=== PATIENT | female | born 1945 | race Caucasian/White ===

== ENCOUNTER 2016-11-02 12:08 | Emergency (ER) | payer OTHER, MEDICARE ==
--- NOTE | 2016-11-02 12:28 | ED GENERAL ADULT ---
History of Present Illness General Chief Complaint: Fever Stated Complaint: FEVER X 10 DAYS Source: patient, old records Exam Limitations: no limitations Vital Signs & Intake/Output Vital Signs & Intake/Output Vital Signs Date Time Temp Pulse Resp B/P Pulse O2 O2 Flow FiO2 Ox Delivery Rate 11/02 1458 98.7 86 18 149/70 98 11/02 1230 98 Room Air 11/02 1219 98.5 105 16 137/73 95 Room Air Allergies Coded Allergies: No Known Allergies (11/02/16) Reconcile Medications Albuterol Sulfate (Proair Hfa) 90 MCG HFA.AER.AD 2 PUF INH Q4-6 PRN PRN BREATHING PROBLEMS (Reported) Azithromycin 250 MG TABLET 1 DP PO AD bronchitis 2 the first day followed by 1 for days 2-5 Budesonide/Formoterol Fumarate (Symbicort 160-4.5 Mcg Inhaler) 160 MCG-4.5 MCG/ ACTUATION HFA.AER.AD 2 PUF INH BID BREATHING PROBLEMS (Reported) Losartan Potassium 25 MG TABLET 1 TAB PO DAILY HEART (Reported) Pravastatin Sodium 20 MG TABLET 1 TAB PO QPM CHOLESTEROL (Reported) Triage Note: TRIAGE: C/O FEVER X11 DAYS, HIGHEST WAS 103.9 AT HOME. LAST TOOK TYLENOL 6AM AND ARRIVES AFEBRILE 98.5. HX ASTHMA AND DIFFICULTY TAKING DEEP BREATHS. O2 SAT 96% ON ROOM AIR, NO ACUTE DISTRESS OBSERVED AND NO ACTIVE COUGHING IN TRIAGE. STATES SHE IS REDOING BATHROOM AND COUGH MAY BE RESULT FROM ASTHMA EXACERBATION. REPORTS POOR APPETITE FOR ABOUT 2 WEEKS WITH APPROX 10LBS WEIGHT LOSS. REPORTS PINCHED NERVE IN BACK, HAD INJECTION L3 PINCHED NERVE MID FEB AND QUESTIONING IF THIS IS RELATED TO ONSET OF FEVER. Triage Nurses Notes Reviewed? yes Onset: Gradual Duration: day(s): (11), intermittent Timing: recent history Injury Environment: home Severity: mild, moderate Severity Numbers: 6 No Modifying Factors: none Associated Symptoms: cough HPI: 71-year-old female presents emergency room complaining of intermittent fevers for the past 11 days as high as 103.9 at home. The patient took a dose of Tylenol at 6:00 this morning however states her last fever was last night. She states over the past few days she's had a nonproductive cough that seemed to begin after she resealed her bathroom tub. No sputum production or hemoptysis. She denies any chest pain or abdominal pain no nausea vomiting or diarrhea no urinary symptoms. Patient reports a poor appetite, no rashes to her skin no recent tick or insect bite no recent travel or sick contacts. The patient states she had 2 epidurals in August and October 09 being a last one, however she denies any back pain redness or warmth to her back. There are no modifying factors or associated symptoms (NABEEL HARGROVE) Past History Travel History Traveled to [place] past 21 day No Medical History Any Pertinent Medical History? see below for history Neurological: NONE EENT: NONE Cardiovascular: hypertension, hyperlipidemia Respiratory: asthma, bronchitis, PNA Gastrointestinal: irritable bowel syndrome, cdiff colitis Hepatic: NONE Renal: NONE Musculoskeletal: LUMBAR PAIN R/T PINCHED NERVE Psychiatric: NONE Endocrine: NONE Blood Disorders: NONE Cancer(s): NONE SECURITY SHIFT MANAGER/Reproductive: NONE Pneumonia Vaccine: 05/26/06 Influenza Vaccine: 04/26/10 Surgical History Surgical History: none Psychosocial History Who do you live with Spouse What is your primary language Greenlandic Tobacco Use: Quit >30 days ago ETOH Use: occasional use Illicit Drug Use: denies illicit drug use Family History Hx Contributory? No (NABEEL HARGROVE) Review of Systems Review of Systems Constitutional: Reports: see HPI. All Other Systems: Reviewed and Negative Comments Review of systems: See HPI, All other systems negative. Constitutional, no chills fever, no malaise no weight loss HEENT: No visual changes no sore throat no congestion, no ear pain Cardiovascular: No chest pain , no palpitation , no orthopnea Skin, no jaundice no rashes, no change in skin Respiratory: No dyspnea cough no sputum no hemoptysis GI: No nausea no vomiting, no diarrhea, : No dysuria No hematuria, no frequency, no discharge Muscle skeletal: No joint pain, no joint swelling, no back pain, no neck pain, Neurologic: No numbness no headache Psych: No stress ,. Heme/endocrine: No bruising no bleeding Immunology: No lymphadenopathy (NABEEL HARGROVE) Physical Exam Physical Exam General Appearance: well developed/nourished, alert, awake, anxious Comments: Well-developed well-nourished person in no acute distress HEENT: Normal EENT exam; PERRL, EOMI, HEAD is atraumatic. moist mucous membranes. Neck: Supple, no lymphadenopathy, normal range of motion Back: Nontender, there is no overlying erythema ecchymosis no CVA tenderness. Full range of motion Cardiovascular: Regular rate and rhythms no murmurs rubs or gallops, normal JVP Respiratory: Chest nontender.There were no bony deformities, no asymmetry. No respiratory distress. Patient speaking in full complete sentences. Breath sounds clear to auscultation bilaterally: NO W/R/R Abdomen: Soft, nontender nondistended, no appreciable organomegaly. Normal bowel sounds. No rebound/guarding, Extremity: No edema, full range of motion of extremities, Neuro: Alert oriented x3, motor sensory normal, There were no obvious focal neurologic abnormalities. Skin: No appreciable rash on exposed skin, skin is warm and dry. Psych: Mood and affect is normal, memory and judgment is normal. Core Measures ACS in differential dx? No CVA/TIA Diagnosis: No Severe Sepsis Present: No Septic Shock Present: No (TOY ZARATE,NABEEL) Progress Differential Diagnoses I considered the following diagnoses in my evaluation of the patient: Pneumonia bronchitis viral syndrome electrolyte abnormality dehydration influenza epidural abscess Lyme disease Plan of Care: Orders Procedure Date/time Status RAPID VIRAL INFLUENZA A 11/02 1231 Complete CULTURE,URINE 11/02 1231 Active BLOOD CULTURE 11/02 1231 Active URINALYSIS 11/02 1231 Complete LYME TITRE 11/02 1231 Active LIPASE 11/02 1231 Complete LACTIC ACID 11/02 1231 Complete COMPREHENSIVE METABOLIC PANEL 11/02 1231 Complete CBC WITHOUT DIFFERENTIAL 11/02 1231 Complete AMYLASE 11/02 1231 Complete Laboratory Tests 11/02/16 1531: Lactic Acid Cancelled 11/02/16 1450: Urinalysis LIGHT H, Urine Color STRAW, Urine Clarity CLEAR, Urine pH 7.0, Ur Specific Clifford <= 1.005, Urine Protein NEG, Urine Ketones NEG, Urine Nitrite NEG, Urine Bilirubin NEG, Urine Urobilinogen 0.2, Ur Leukocyte Esterase SMALL H , Ur Microscopic SEDIMENT EXAMINED, Urine RBC RARE, Urine WBC 1-3 H, Ur Epithelial Cells MOD H, Urine Bacteria RARE H, Urine Hemoglobin NEG, Urine Glucose NEG 11/02/16 1255: Anion Gap 12, Estimated GFR > 60, BUN/Creatinine Ratio 15.7, Glucose 110 H, Lactic Acid 1.8, Calcium 11.1 H, Total Bilirubin 0.6, AST 31, ALT 28, Alkaline Phosphatase 133 H, Total Protein 7.2, Albumin 3.9, Globulin 3.3, Albumin/ Globulin Ratio 1.2, Amylase 90, Lipase 244, CBC w Diff NO MAN DIFF REQ, RBC 4.01 L, MCV 100.1 H, MCH 34.2 H, RDW 14.4, MPV 7.2 L, Gran % 74.7, Lymphocytes % 10.1 L, Monocytes % 12.7 H, Eosinophils % 1.9, Basophils % 0.6, Absolute Granulocytes 4.7, Absolute Lymphocytes 0.6 L, Absolute Monocytes 0.8 H, Absolute Eosinophils 0.1, Absolute Basophils 0, PUBS MCHC 34.2, Lyme Disease Antibody Pending Microbiology 11/02 1450 URINE ROUT: Urine Culture - RECD 11/02 1255 BLOOD: Blood Culture - RECD 11/02 1245 NASOPHARYN: Influenza Virus A & B Rapid Smear - COMP 11/02 1240 BLOOD: Blood Culture - RECD Labs ordered old records reviewed, patient resting comfortable at this time nontoxic appearing afebrile we'll continue to monitor 11/02/2016 2:17:49 PM case discussed with Dr. Castellano agrees with plan. Again the patient clinically appears well tolerating by mouth she denies any abdominal or back pain, there are no rashes to her skin I discussed with her all of her lab results x-ray findings, need for close follow-up with her primary care physician on Saturday we will treat at this time for possible bronchitis given cough with azithromycin. Advise close follow-up Tylenol Motrin every 4-6 hours as needed however to return immediately if her fevers persist despite medication or her symptoms worsen at any time sooner she feels comfortable with this plan (TOY ZARATE,NABEEL) Diagnostic Imaging: Viewed by Me: Radiology Read. Discussed w/RAD: Radiology Read. Radiology Impression: PATIENT: KIRSTY MARTINS PRESENT AGE: 71 PATIENT ACCOUNT NO: [id number] : 46 LOCATION: [facility] ORDERING PHYSICIAN: NABEEL ZARATE SERVICE DATE: 11/02/164172 EXAM TYPE: RAD - XRY-CHEST XRAY, PA AND LATERAL EXAMINATION: XR CHEST CLINICAL INFORMATION: Cough and fever, question pneumonia. COMPARISON: 05/05/2010. TECHNIQUE: 2 views of the chest were obtained. FINDINGS: The cardiomediastinal silhouette is within normal limits. The lungs appear mildly hyperexpanded and clear without underlying congestion, consolidation, or effusion is seen. There is no evidence of pneumothorax or pulmonary edema. Included osseous structures demonstrate mild osteopenia, mild deformity of the proximal right humerus suggesting an old healed fracture. IMPRESSION: Mild COPD changes are suggested, no acute intrathoracic process is seen. DICTATED BY: DANIEL REYNA MD DATE/TIME DICTATED:11/02/161345 STILL PUMP OPERATOR:BRAYAN DATE/TIME TRANSCRIBED:1345 CONFIDENTIAL, DO NOT COPY WITHOUT APPROPRIATE AUTHORIZATION. < Electronically signed in Other Vendor System> SIGNED BY: DANIEL REYNA MD 11/02/16 1352 Initial ED EKG: none (NABEEL HARGROVE) Departure Departure Time of Disposition: 1518 Disposition: HOME OR SELF CARE Condition: Stable Clinical Impression Primary Impression: Bronchitis Referrals: JHONY APONTE APRN (PCP/Family) Additional Instructions: Follow-up with your primary care physician on Saturday. Z-Vinny as directed interchange Tylenol Motrin every 4-6 hours. Drink plenty of fluids return immediately if your symptoms worsen despite medication he have persistent fevers or you have any other concerns your prescription was sent to your pharmacy Departure Forms: Customer Survey General Discharge Information Prescriptions: Current Visit Scripts Azithromycin 1 DP PO AD #6 TAB 2 the first day followed by 1 for days 2-5 (NABEEL HARGROVE) PA/CIRCUIT DESIGN ENGINEER Co-Sign Statement Statement: ED Attending supervision documentation- [x] I saw and evaluated the patient. I have also reviewed all the pertinent lab results and diagnostic results. I agree with the findings and the plan of care as documented in the PA's/CIRCUIT DESIGN ENGINEER's documentation. [] I have reviewed the ED Record and agree with the PA's/CIRCUIT DESIGN ENGINEER's documentation. [] Additions or exceptions (if any) to the PAs/CIRCUIT DESIGN ENGINEER's note and plan are summarized below: [] (PABLO CASTELLANO DO) Critical Care Note Critical Care Note Critical Care Time: non-applicable (NABEEL HARGROVE)
[2016-11-02 13:13] LABS: ABSOLUTE BASOPHIL COUNT 0 /CUMM (0.0-0.2); ABSOLUTE EOSINOPHIL COUNT 0.1 /CUMM (0.0-0.7); ABSOLUTE GRANULOCYTE CT 4.7 /CUMM (1.4-6.5); ABSOLUTE LYMPH COUNT 0.6 /CUMM (1.2-3.4); ABSOLUTE MONOCYTE COUNT 0.8 /CUMM (0.10-0.60); BASOPHIL % 0.6 % (0.0-2.0); EOSINOPHIL % 1.9 % (0-5); GRANULOCYTE % 74.7 % (42.2-75.2); HEMATOCRIT 40.1 % (37-47); MEAN CORPUSCULAR HGB 34.2 PG (27.0-31.0); MEAN CORPUSCULAR HGB CONC 34.2 G/DL (33.0-37.0); MEAN CORPUSCULAR VOLUME 100.1 FL (81.0-99.0); MEAN PLATELET VOLUME 7.2 FL (7.4-10.4); PLATELET COUNT 286 /CUMM (130-400); RBC DISTRIBUTION WIDTH 14.4 % (11.5-14.5); RED BLOOD CELL CT 4.01 /CUMM (4.20-5.40); WHITE BLOOD CELL COUNT 6.3 /CUMM (4.8-10.8)
[2016-11-02] MEDS ORDERED: PRAVASTATIN SOD20 M2 PO (13:40)
[2016-11-02] MEDS ORDERED: LOSARTAN POTASS25 M1 PO (13:40)
[2016-11-02] MEDS ORDERED: PROAIR HFA8.5 GM INH (13:41)
[2016-11-02] MEDS ORDERED: SYMBICORT 16010.2 GM INH (13:41)
--- NOTE | 2016-11-02 13:52 | RADIOLOGY REPORT ---
EXAMINATION: XR CHEST CLINICAL INFORMATION: Cough and fever, question pneumonia. COMPARISON: 05/05/2010. TECHNIQUE: 2 views of the chest were obtained. FINDINGS: The cardiomediastinal silhouette is within normal limits. The lungs appear mildly hyperexpanded and clear without underlying congestion, consolidation, or effusion is seen. There is no evidence of pneumothorax or pulmonary edema. Included osseous structures demonstrate mild osteopenia, mild deformity of the proximal right humerus suggesting an old healed fracture. IMPRESSION: Mild COPD changes are suggested, no acute intrathoracic process is seen.
[2016-11-02 14:58] VITALS: BP 149/70
[2016-11-02] MEDS ORDERED: AZITHROMYCIN250 M1 PO (15:20)
== END 2016-11-02 15:29 ==
LOC: ERH 12:08
PROVIDERS: Physician Assistant Medical
DX: J40 Bronchitis, not specified as acute or chronic (principal); Z87.891 Personal history of nicotine dependence
CPT/HCPCS: 86618; 81001; 87040; 87086; 87804; 87804-59